=== PATIENT | male | born 1995 | race Caucasian/White ===

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

== ENCOUNTER 2017-06-27 01:28 | Emergency (ER) | payer SELFPAY ==
[~2017-06-27] VITALS: Ht 165.1 cm; Wt 77.2 kg
[~2017-06-27 01:28] MED LIST changes: +CETI10CA PO; +GUAI120S26 PO; +OSLT75C PO
[2017-06-27 01:40] VITALS: Ht 165.1 cm; Wt 77.2 kg
--- NOTE | 2017-06-27 03:52 | ERD ---
ER Documentation Chief Complaint Chief Complaint cough and congestion x24 hrs, "my chest hurt w/coughing" HPI 22-year-old male presents here to emergency department for complaints of right- sided chest pain radiating to the right shoulder after coughing vigorously for the last 24 hours. Patient has been having dry cough, does not cough up any phlegm or blood. Patient does not have any shortness of breath or wheezing. Patient denies any fever chills. Patient denies any trauma in the chest. Patient denies any dizziness exertion or dyspnea on lying down. ROS All systems reviewed and are negative except as per history of present illness. Medications Home Meds Active Scripts Oseltamivir Phosphate* (Tamiflu*) 75 Mg Capsule, 75 MG PO BID for 5 Days, CAP Prov:BASILIO EASTMAN NP 10/25/16 Ibuprofen* (Motrin*) 600 Mg Tab, 600 MG PO Q6H Y for PAIN AND OR ELEVATED TEMP, #30 TAB Prov:BASILIO EASTMAN NP 10/25/16 Cetirizine Hcl* (Zyrtec*) 10 Mg Capsule, 10 MG PO DAILY, #30 TAB.CHEW Prov:BASILIO EASTMAN NP 10/25/16 Nitxyhazamd-Z-Lmuzgvivxs Hb* (Guaifenesin* DM Syrup) 120 Ml Syrup, 10 ML PO Q4H Y for COUGH, #120 ML Prov:BASILIO EASTMAN NP 10/25/16 Benzonatate* (Tessalon Perle*) 100 Mg Capsule, 100 MG PO Q8H Y for COUGH, #20 CAP Prov:ANGEL VALDEZ PA-C 10/24/16 Loratadine* (Claritin*) 10 Mg Tablet, 10 MG PO DAILY, #20 TAB Prov:ANGEL VALDEZ PA-C 10/24/16 Ibuprofen* (Ibuprofen*) 400 Mg Tablet, 400 MG PO Q6H Y for PAIN, #30 TAB Prov:ANGEL VALDEZC 10/24/16 Sodium Chloride (Saline Nasal [place]) 45 Ml [place], 2 SPRAYS NASAL Q2H Y for NASAL CONGESTION, #1 BOTTLE Prov:KATIE PORTER NP 03/12/16 Acetaminophen* (Tylophen*) 500 Mg Capsule, 1 CAP PO Q6H Y for PAIN AND OR ELEVATED TEMP, #20 CAP Prov:KATIE PORTER NP 03/12/16 Ibuprofen* (Motrin*) 600 Mg Tab, 600 MG PO Q6, #30 TAB Prov:BRIDGET RODRIGUEZ 12/12/15 Hydroxyzine Hcl* (Hydroxyzine Hcl*) 10 Mg Tablet, 10 MG PO Q6H Y for ANXIETY, # 30 TAB Prov:ROGER GALLOWAY PA-C 09/06/15 Allergies Allergies: Coded Allergies: No Known Allergy (Unverified , 06/27/17) PMhx/Soc Medical and Surgical Hx: pt denies Medical Hx, pt denies Surgical Hx History of Surgery: No Anesthesia Reaction: No Hx Neurological Disorder: No Hx Respiratory Disorders: No Hx Cardiac Disorders: No Hx Psychiatric Problems: Yes (anxiety) Hx Miscellaneous Medical Probl: No Hx Alcohol Use: Yes (OCCASSIONAL DRINKER) Hx Substance Use: No Hx Tobacco Use: No Smoking Status: Never smoker FmHx Family History: No coronary disease, No diabetes, No other Physical Exam Vitals Vital Signs Date Time Temp Pulse Resp B/P Pulse Ox O2 Delivery O2 Flow Rate FiO2 06/27/17 01:40 97.6 87 18 124/70 100 Physical Exam GENERAL: The patient is well developed and appropriate for usual state of health, in no apparent distress. CHEST: Clear to auscultation bilaterally. There are no rales, wheezes or rhonchi. Palpable right chest tenderness. HEART: Regular rate and rhythm. No murmurs, clicks, rubs or gallops. No S3 or S4. ABDOMEN: Soft, nontender and nondistended. Good bowel sounds. No rebound or guarding. No gross peritonitis. No gross organomegaly or masses. No Valdez sign or McBurney point tenderness. BACK: No midline or flank tenderness. EXTREMITIES: Equal pulses bilaterally. There is no peripheral clubbing, cyanosis or edema. No focal swelling or erythema. Full range of motion. Grossly neurovascularly intact. NEURO: Alert and oriented. Cranial nerves 2-12 intact. Motor strength in all 4 extremities with 5/5 strength. Sensation grossly intact. Normal speech and gait. SKIN: There is no apparent rash or petechia. The skin is warm and dry. HEMATOLOGIC AND LYMPHATIC: There is no evidence of excessive bruising or lymphedema. No gross cervical, axillary, or inguinal lymphadenopathy. Results 24 hrs PROCEDURE: Chest. CLINICAL INDICATION: Chest pain. TECHNIQUE: Single frontal view of the chest was obtained. COMPARISON: 10/25/2016. FINDINGS: The cardiac silhouette is within normal limits. The aortic arch is unremarkable. There is no focal consolidation, vascular congestion or pleural effusion. There is no pneumothorax. IMPRESSION: No evidence for active cardiopulmonary disease. .Vladislav Mcgovern MD, Date Time Electronically viewed and signed by .Vladislav Mcgovern MD, MD on 06/27/2017 04:23 .T/ CC: BASILIO EASTMAN GENERAL MANAGER IN TRAINING Procedures/MDM Medical Decision Making: Symptoms of chest pain most likely is consistent with musculoskeletal strain from coughing. Patient is dry cough most likely is from acute bronchitis, no symptoms of any pneumonia. Lungs are clear. Oxygenation is normal. There is low suspicion for cardiopulmonary emergencies at this time. Patient has low risk factors. EKG is normal, there is no changes in the EKG that indicates cardiac emergencies. Chest X-ray does not show cardiopulmonary emergencies at this time. There is low suspicion for aortic aneurysm, myocardial infarction, pneumothorax, pleural effusion, pulmonary embolism, or any other cardiopulmonary emergencies at this time. Prescription was given for guaifenesin with codeine, ibuprofen, albuterol is advised to follow-up with primary care doctor in 2-3 days for reevaluation of symptoms. Patient was advised to return to emergency department for any worsening symptoms. Dispostion: Home. Stable Disclaimer: Inadvertent spelling and grammatical errors are likely due to EHR/ dictation software use and do not reflect on the overall quality of patient care. Also, please note that the electronic time recorded on this note does not necessarily reflect the actual time of the patient encounter. Departure Diagnosis: Primary Impression: Strain of chest wall Encounter type: initial encounter Qualified Code: S29.011A - Muscle strain of chest wall, initial encounter Additional Impression: Acute bronchitis Bronchitis organism: unspecified organism Qualified Code: J20.9 - Acute bronchitis, unspecified organism Condition: Stable Patient Instructions: Bronchitis, No Antibiotic (Adult), Chest Wall Strain BASILIO EASTMAN NP Jun 27, 2017 03:52
--- NOTE | 2017-06-27 04:24 | RADRPT ---
PROCEDURE: Chest. CLINICAL INDICATION: Chest pain. TECHNIQUE: Single frontal view of the chest was obtained. COMPARISON: 10/25/2016. FINDINGS: The cardiac silhouette is within normal limits. The aortic arch is unremarkable. There is no focal consolidation, vascular congestion or pleural effusion. There is no pneumothorax. IMPRESSION: No evidence for active cardiopulmonary disease. .Vladislav Mcgovern MD, MD Date Time Electronically viewed and signed by .Vladislav Mcgovern MD, MD on 06/27/2017 04:23 .T/
[2017-06-27] MEDS ORDERED: ALBU8.5H3 INH (04:56)
[2017-06-27] MEDS ORDERED: IBUP-1542 PO (04:56)
[2017-06-27] MEDS ORDERED: CETI10CA PO (04:56)
[2017-06-27] MEDS ORDERED: GUAI473L22 PO (04:56)
== END 2017-06-27 05:01 | disposition home or self-care (01) ==
LOC: FTE 01:28
DX: S29.011A Strain of muscle and tendon of front wall of thorax, initial encounter (principal); J20.9 Acute bronchitis, unspecified; X58.XXXA Exposure to other specified factors, initial encounter; Y92.9 Unspecified place or not applicable
CPT/HCPCS: 71010; 99283

== ENCOUNTER 2017-06-29 01:22 | Emergency (ER) | payer SELFPAY ==
[~2017-06-29] VITALS: Ht 177.8 cm; Wt 76.7 kg
[~2017-06-29 01:22] MED LIST changes: +ALBU8.5H3 INH; +GUAI473L22 PO
[2017-06-29 01:37] VITALS: Ht 177.8 cm; Wt 76.7 kg
--- NOTE | 2017-06-29 03:50 | ERD ---
ER Documentation Chief Complaint Chief Complaint numbness on tongue - pt a/o x4, ambulatory, had c/o before-was told anxiety HPI This is a 22-year-old male that presents to the ER stating that he began to feel as if his tongue was not a few hours ago. Patient denies any upper or lower extremity numbness or tingling. He denies any weaknesses to his extremities. Patient had this about a year ago, and was told he had anxiety. Patient has had a past medical history of anxiety. Denies any rashes, he denies any new foods or coming in contact with any new substances. He denies tongue swelling or lip swelling or any difficulty in breathing or swallowing. Has not had any nausea vomiting or diarrhea. Patient states that he is currently taking antibiotics for bronchitis, and that he has been at home board for the last 3 days. He states that he feels stressed out because he cannot work. ROS 12 point review of systems was done, all negative except per HPI. Medications Home Meds Active Scripts Ibuprofen* (Motrin*) 600 Mg Tab, 600 MG PO Q6H Y for PAIN AND OR ELEVATED TEMP, #30 TAB Prov:BASILIO EASTMAN NP 06/27/17 Albuterol Sulfate* (Proair HFA*) 8.5 Gm Hfa.aer.ad, 2 PUFF INH Q4H Y for WHEEZING AND SOB, #1 INHALER Prov:BASILIO EASTMAN NP 06/27/17 Cetirizine Hcl* (Zyrtec*) 10 Mg Capsule, 10 MG PO DAILY, #30 TAB.CHEW Prov:BASILIO EASTMAN NP 06/27/17 Guaifenesin-Codeine Phosphate* (Guaifenesin* AC Cough Syrup) 473 Ml Liquid, 10 ML PO Q4H Y for COUGH, #60 ML Prov:BASILIO EASTMAN NP 06/27/17 Oseltamivir Phosphate* (Tamiflu*) 75 Mg Capsule, 75 MG PO BID for 5 Days, CAP Prov:BASILIO EASTMAN NP 10/25/16 Ibuprofen* (Motrin*) 600 Mg Tab, 600 MG PO Q6H Y for PAIN AND OR ELEVATED TEMP, #30 TAB Prov:BASILIO EASTMAN NP 10/25/16 Cetirizine Hcl* (Zyrtec*) 10 Mg Capsule, 10 MG PO DAILY, #30 TAB.CHEW Prov:BASILIO EASTMAN NP 10/25/16 Lnmthymnlnd-O-Hiqdsngjvk Hb* (Guaifenesin* DM Syrup) 120 Ml Syrup, 10 ML PO Q4H Y for COUGH, #120 ML Prov:BASILIO EASTMAN NP 10/25/16 Benzonatate* (Tessalon Perle*) 100 Mg Capsule, 100 MG PO Q8H Y for COUGH, #20 CAP Prov:ANGEL VALDEZ PA-C 10/24/16 Loratadine* (Claritin*) 10 Mg Tablet, 10 MG PO DAILY, #20 TAB Prov:ANGEL VALDEZ PA-C 10/24/16 Ibuprofen* (Ibuprofen*) 400 Mg Tablet, 400 MG PO Q6H Y for PAIN, #30 TAB Prov:ANGEL VALDEZ PA-C 10/24/16 Sodium Chloride (Saline Nasal [place]) 45 Ml [place], 2 SPRAYS NASAL Q2H Y for NASAL CONGESTION, #1 BOTTLE Prov:KATIE PORTER RESIDENTIAL RECYCLE DRIVER 03/12/16 Acetaminophen* (Tylophen*) 500 Mg Capsule, 1 CAP PO Q6H Y for PAIN AND OR ELEVATED TEMP, #20 CAP Prov:KATIE PORTER RESIDENTIAL RECYCLE DRIVER 03/12/16 Ibuprofen* (Motrin*) 600 Mg Tab, 600 MG PO Q6, #30 TAB Prov:BRIDGET RODRIGUEZ 12/12/15 Hydroxyzine Hcl* (Hydroxyzine Hcl*) 10 Mg Tablet, 10 MG PO Q6H Y for ANXIETY, # 30 TAB Prov:ROGER GALLOWAY PA-C 09/06/15 Allergies Allergies: Coded Allergies: No Known Allergy (Unverified , 06/27/17) PMhx/Soc Medical and Surgical Hx: pt denies Medical Hx, pt denies Surgical Hx History of Surgery: No Anesthesia Reaction: No Hx Neurological Disorder: No Hx Respiratory Disorders: No Hx Cardiac Disorders: No Hx Psychiatric Problems: No Hx Miscellaneous Medical Probl: No Hx Alcohol Use: Yes (OCCASSIONAL) Hx Substance Use: Yes (MARIJUANA) Hx Tobacco Use: No Smoking Status: Never smoker Physical Exam Vitals Vital Signs Date Time Temp Pulse Resp B/P Pulse Ox O2 Delivery O2 Flow Rate FiO2 06/29/17 01:37 98.7 75 20 119/70 98 Physical Exam GENERAL: The patient is well developed and appropriate for usual state of health , in no apparent distress. HEENT: Atraumatic. Conjunctivae are pink. Pupils equal, round, and reactive to light. Extraocular muscles are grossly intact. Bilateral tympanic membranes are clear with no evidence of erythema, bulging or perforation. No sinus tenderness. Not have any tonsillar erythema, uvular deviation, kissing tonsils. NECK: C-spine is soft and supple. There is no cervical lymphadenopathy. CHEST: Clear to auscultation bilaterally. There are no rales, wheezes or rhonchi. HEART: Regular rate and rhythm. No murmurs, clicks, rubs or gallops. EXTREMITIES: Equal pulses bilaterally. There is no peripheral clubbing, cyanosis or edema. No focal swelling or erythema. Full range of motion. Grossly neurovascularly intact. NEURO: Alert and oriented. Cranial nerves II through XII are intact. Motor strength in all 4 extremities with 5/5 strength. Sensation grossly intact. Normal speech and gait. Negative [place]om[place]. +2 DTRs. SKIN: There is no apparent rash or petechia. The skin is warm and dry. Procedures/MDM Is a 22-year-old male presents to the ER stating that he has tongue numbness. Patient's neurological examination is completely benign, suspicion for intracranial pathology is low. I do not believe that this is an allergic reaction as patient does not have any swelling of his tongue, lips, eyes and he does not have any rashes. Patient's vital signs are completely normal and he is extremely well-appearing. I explained to patient that etiology of tongue numbness is unknown, however suspicion for urgency at this time is low. Patient understood and states that he did feel very stressed and thinks that it is anxiety again. I asked patient to follow-up with the neurologist if symptoms continue. At this time do not believe that further testing is necessary as his physical examination is benign. he is able to speak without any difficulty or slurring of words, we also gave patient some orange juice, he does not have any problems swallowing the orange juice. He needs to follow-up with his primary care doctor within 1-2 days or return to ER sooner if symptoms worsen. My medical decision making shared with the patient he understands and agrees with plan. Departure Diagnosis: Primary Impression: Numbness Condition: Stable Patient Instructions: Anxiety Reaction Referrals: SILVERIO MALCOLM (PCP) Additional Instructions: Call your primary care doctor TOMORROW for an appointment during the next 1-2 days.See the doctor sooner or return here if your condition worsens before your appointment time. BRIDGET RODRIGUEZ Jun 29, 2017 03:50
== END 2017-06-29 03:35 | disposition home or self-care (01) ==
LOC: FTE 01:22
DX: R20.0 Anesthesia of skin (principal)
CPT/HCPCS: 99282

== ENCOUNTER 2018-07-02 09:08 | Emergency (ER) | END 2018-07-02 10:23 | disposition home or self-care (01) ==

== ENCOUNTER 2018-12-08 23:33 | Emergency (ER) | payer OTHER ==
[~2018-12-08] VITALS: Ht 172.7 cm; Wt 71.0 kg
[~2018-12-08 23:33] MED LIST changes: -ALBU8.5H3 INH; +ALBU8.5H8 INH; +BENZ-6 PO; -BENZ100C70 PO; -HYDR-3010 PO; +HYDR-3029 PO; +IBUP-1541 PO; -IBUP400T22 PO; +LORA0.5T PO; +OSEL75CA23 PO; -OSLT75C PO
[2018-12-08 23:42] VITALS: BP 123/87; PULSE 86; RESP 16; Ht 172.7 cm; Wt 71.0 kg
== END 2018-12-09 03:27 | disposition left against medical advice (07) ==
LOC: FTE 23:33
DX: Z53.21 Procedure and treatment not carried out due to patient leaving prior to being seen by health care provider (principal)